=== PATIENT | female | born 1985 | race Hispanic/Latino ===

== ENCOUNTER 2017-03-13 13:12 | Inpatient (IN) | payer OTHER ==
[2017-03-13 13:23] VITALS: BMI 27.5
--- NOTE | 2017-03-13 13:56 | OBHP ---
Datetime: 03/13/2017 13:30 IP Adm Impression: Term, intrauterine ; No Active Labor IP Admit Plan: Observation/Evaluation Admit Comment, IP Provider: 31yo IUp at [address] Flowers for elevated BP. No messer; no visual dist. No SROM; no VB; +FM Prenatl chart rev'd PMH: denies PSH: denies NKA PSoH: denies smoking ETOH drugs POBGYNH: no STD; G1 EDC March A: IUP at 37w elevated BP PLAN: NST check blood work check UA spoke to Dr Flowers earlier pt understnds and her questions answered Pelvic Type - PN: Adequate Extremities - PN: Normal Abdomen - PN: Normal Back - PN: Normal Breast - PN: Not Done Lungs - PN: Normal Heart - PN: Normal Thyroid - PN: Normal Neurologic - PN: Normal HEENT - PN: Normal General - PN: Normal Presentation-Admit: Vertex IP Fetus A Comments: Sonogram ceph FHR - Baseline A Provider: 125 Comments, ACOG Physical Exam: ROS: Geneeral no weakness; no fatigue HEENT: No MESSER; no visual dist Resp: No SOB; no Cough CV: NO CP; no palpitations GI: No N/V/D : No F/U/D MS: NO joint pain Pool Provider: Negative IP Hx Assessment: The History has been Reviewed and is Current Vital Signs Provider: Reviewed IP Chief Complaint: Signs/Symptoms Gestational HTN NICHD Variability Prov Fetus A: Moderate 6-25bpm NICHD Accel Fetus A IP Provider: 15X15 FHR Category Provider Fetus A: Category I NICHD Decel Fetus A IP Provider: None Genitourinary Exam: Normal DTRs - PN: Normal
[2017-03-13 14:14] LABS: RBC URINE 9 /hpf (0-3); URINE BACTERIA OCC (<OCC); URINE BILIRUBIN NEGATIVE (NEGATIVE); URINE BLOOD MODERATE (NEGATIVE); URINE COLOR STRAW (YELLOW); URINE GLUCOSE (UA) NEG (Normal); URINE KETONE NEGATIVE (NEGATIVE); URINE LEUKOCYTE ESTERASE NEG Leu/uL (Negative); URINE PROTEIN NEGATIVE (NEGATIVE); URINE UROBILINOGEN 0.2-1.0 mg/dL (0.2-1.0); WBC URINE 1 /hpf (0-5)
[2017-03-13 14:16] LABS: HEMATOCRIT 35.9 % (34.0-47.0); MEAN CELL VOLUME 87.6 fl (81.0-99.0); MEAN CORPUSCULAR HGB CONC 34.2 g/dL (33.0-37.0); RED CELL DISTRIBUTION WIDTH 13.4 % (11.5-14.5); WHITE BLOOD COUNT 8.3 K/uL (4.8-10.8)
[2017-03-13 14:24] LABS: ALB/GLOB RATIO 1.3 (1.0-2.1); ALKALINE PHOSPHATASE 135 U/L (38-126); ALT/SGPT 26 U/L (9-52); AST/SGOT 24 U/L (14-36); BILIRUBIN,TOTAL 0.5 mg/dl (0.2-1.3); BLOOD UREA NITROGEN 10 mg/dl (7-17); CARBON DIOXIDE 20 mmol/L (22-30); CHLORIDE 105 mmol/L (98-107); GFR AFRICAN-AMERICAN > 60; GLUCOSE,RANDOM 93 mg/dL (65-105); POTASSIUM 4.1 MMOL/L (3.6-5.0); SODIUM 137 mmol/l (132-148); TOTAL PROTEIN 6.9 G/DL (6.3-8.2); URIC ACID 4.5 mg/Dl (2.2-7.5)
[2017-03-13 14:33] LABS: PARTIAL THROMBOPLASTIN TIME 27.1 SECONDS (23.3-32.5)
--- NOTE | 2017-03-13 14:37 | OBHP ---
Datetime: 03/13/2017 13:30 Admit Comment, IP Provider: 31yo IUp at [address] Flowers for elevated BP. No jain; no visual dist. No SROM; no VB; +FM Prenatl chart rev'd PMH: denies PSH: denies NKA PSoH: denies smoking ETOH drugs POBGYNH: Hx HPV abnormal PAP; G1 EDC Candi A: IUP at 37w elevated BP PLAN: NST check blood work check UA spoke to Dr Flowers earlier pt understnds and her questions answered
[2017-03-13 14:49] VITALS: BP 142/83; PULSE 80; RESP 20; TEMP 98.6; O2SAT 100
--- NOTE | 2017-03-13 16:13 | OBPN ---
Datetime: 03/13/2017 16:09 IP Progress Impression: Reassuring heart rate IP Informed Consent Obtain: Vaginal Delivery; Risks, Benefits and Alternatives Discussed IP Progress Plan: Induction; Cervical Ripening IP Progress Note Comment: Labs rev'd; spoke to Dr Flowers ... pt finished eating...Cervidil placed Dilatation, Provider: 1 Effacement, Provider: long [facility], Provider: high Datetime: 03/13/2017 13:30 Pool Provider: Negative FHR - Baseline A Provider: 125 IP Fetus A Comments: Sonogram ceph Presentation-Admit: Vertex Vital Signs Provider: Reviewed NICHD Accel Fetus A IP Provider: 15X15 FHR Category Provider Fetus A: Category I NICHD Variability Prov Fetus A: Moderate 6-25bpm NICHD Decel Fetus A IP Provider: None
[2017-03-14] MEDS: Lactated Ringer's 1,000 ML IV SCH ×2 (05:05→13:15)
[2017-03-14] MEDS ORDERED: Oxytocin 30 units/LR 500ML 30 U/500 ML BAG IV SCH (05:30)
[2017-03-14] MEDS ORDERED: Nalbuphine 20 mg/ml Inj (1 ml) IVP PRN (06:51)
[2017-03-14] MEDS ORDERED: Lactated Ringer's 1,000 ML IV SCH (14:15)
[2017-03-14] MEDS ORDERED: Fentanyl/Bupivacaine HCl 250 ML EPI ONE (16:35)
[2017-03-14] MEDS ORDERED: Bupivacaine HCl 0.25% PF (10 ml) Inj ONE (16:35)
[2017-03-14] MEDS ORDERED: Lidocaine 1% Inj (20ml) ONE (23:21)
--- NOTE | 2017-03-14 23:58 | OBADHP ---
Datetime: 03/13/2017 16:09 Dilatation, Provider: 1 Effacement, Provider: long [facility], Provider: high Datetime: 03/13/2017 13:30 Admit Comment, IP Provider: 31yo IUp at [address] Flowers for elevated BP. No messer; no visual dist. No SROM; no VB; +FM Prenatl chart rev'd PMH: denies PSH: denies NKA PSoH: denies smoking ETOH drugs POBGYNH: Hx HPV abnormal PAP; G1 EDC Candi A: IUP at 37w with atypical preeclampsia elevated BP PLAN: NST check blood work check UA spoke to Dr Flowers earlier pt understnds and her questions answered Pelvic Type - PN: Adequate Extremities - PN: Normal Abdomen - PN: Normal Back - PN: Normal Breast - PN: Not Done Lungs - PN: Normal Heart - PN: Normal Thyroid - PN: Normal Neurologic - PN: Normal HEENT - PN: Normal General - PN: Normal Presentation-Admit: Vertex IP Fetus A Comments: Sonogram ceph FHR - Baseline A Provider: 125 Comments, ACOG Physical Exam: ROS: Geneeral no weakness; no fatigue HEENT: No MESSER; no visual dist Resp: No SOB; no Cough CV: NO CP; no palpitations GI: No N/V/D : No F/U/D MS: NO joint pain Pool Provider: Negative IP Hx Assessment: The History has been Reviewed and is Current Vital Signs Provider: Reviewed IP Chief Complaint: Signs/Symptoms Gestational HTN NICHD Variability Prov Fetus A: Moderate 6-25bpm NICHD Accel Fetus A IP Provider: 15X15 FHR Category Provider Fetus A: Category I NICHD Decel Fetus A IP Provider: None Genitourinary Exam: Normal DTRs - PN: Normal IP Adm Impression: Term, intrauterine ; No Active Labor IP Admit Plan: Observation/Evaluation
--- NOTE | 2017-03-15 00:05 | OBPN ---
Datetime: 03/15/2017 00:00 IP Progress Impression: Normal progression of labor IP Informed Consent Obtain: Vaginal Delivery IP Progress Plan: Continue present management Membranes, Provider: Ruptured Amniotic Fluid Color, Provider: Clear Contraction Comments Provider: q 2 min FHR - Baseline A Provider: 145 Gestation - Est Wks by US: 37.4 Presentation-Admit: Vertex IP Progress Note Comment: pt seen and examined c/o of pressure, reports contraction q 2 min pain con trolled, +lof, denies VB, +FM denies headaches, blurry vision, RUQ/epigastric pain VSS PE Gen: NAD, AAO x 3 RESP CTAB?L CVS: RRR, +S1/S2 ABD: soft, NT, no RUQ/epgiastric pain VE: 10/100/+1 EXT no calf tendenress MEDS s/p Cervdil on Pitoicin 10 mu/min A/P @ 37+ wks IOL for preeclampsia , fully dilated -start pushing -anticipate Vital Signs Provider: Reviewed; Within Normal Limits FHR Category Provider Fetus A: Category I NICHD Variability Prov Fetus A: Moderate 6-25bpm Dilatation, Provider: 10 Effacement, Provider: 100 Station, Provider: 1 NICHD Decel Fetus A IP Provider: None
[2017-03-15] MEDS ORDERED: Benzocaine/Menthol SPRAY TOP PRN ×2 (00:07→03:32)
[2017-03-15] MEDS ORDERED: Oxycodone/Acetaminophen 5/325 mg Tab PO PRN ×4 (00:07→03:32)
--- NOTE | 2017-03-15 00:48 | OBDS ---
MATERNAL INFORMATION Provider Comments: pt was fully dilated and pushing, atramatic, spontaneous deliveyr of head in JOSHUA position with nuchal cord x 1 tight, loosened, atrumatic, spontaeous deliveyr of anterior followe dby posteiro shouler with body cord, both oral and and nasal passages of baby bulb suctioned. umbical co rd clamped and cut, baby handed ot mother on abdomen with rn assistance. spontanoeus deliveyr of int act placent with membranes., fundus firm. good hemostasis, second degree perineal laceration reapire d with 2-[address] Good hemostasis, no complications. live male infant agpars 9,9 weight of 6lb 10 ounces ebl 300 ml no complications LABOR SUMMARY EDC: 04/01/2017 00:00 No. Babies in Womb: 1 LABOR INFORMATION Cervical Ripening Agents: Cervidil (Annotations: cervidil inserted by Dr. Antonio) Group B Beta Strep: Negative MEMBRANES Membranes Rupture Method: Spontaneous Amniotic Fluid Color: Clear Amniotic Fluid Amount: Moderate VAGINAL DELIVERY Episiotomy: None Laceration Extension: Second Degree Laceration Type: Perineal Laceration Repair Note: second degree perineal laceration noted adn repaired with 2-0 chormic
[2017-03-15] MEDS ORDERED: Oxytocin 30 units/LR 500ML 30 U/500 ML BAG IV ONE (00:52)
[2017-03-15] MEDS ORDERED: Multivitamin With Minerals Tab PO SCH (09:00)
[2017-03-15 14:16] LABS: ALB/GLOB RATIO 1.2 (1.0-2.1); ALKALINE PHOSPHATASE 103 U/L (38-126); ALT/SGPT 23 U/L (9-52); AST/SGOT 29 U/L (14-36); BILIRUBIN,TOTAL 0.7 mg/dl (0.2-1.3); BLOOD UREA NITROGEN 7 mg/dl (7-17); CARBON DIOXIDE 23 mmol/L (22-30); CHLORIDE 104 mmol/L (98-107); GFR AFRICAN-AMERICAN > 60; GLUCOSE,RANDOM 89 mg/dL (65-105); SODIUM 135 mmol/l (132-148); TOTAL PROTEIN 5.7 G/DL (6.3-8.2); URIC ACID 3.5 mg/Dl (2.2-7.5)
[2017-03-15 14:38] LABS: BASO % 0.3 % (0.0-2.0); EOS # 0.1 K/uL (0.0-0.7); EOS % 0.4 % (0.0-4.0); HEMATOCRIT 34.6 % (34.0-47.0); LYMPH # 1.4 K/uL (1.0-4.3); LYMPH % 10.7 % (20.0-40.0); MEAN CELL VOLUME 87.6 fl (81.0-99.0); MEAN CORPUSCULAR HEMOGLOBIN 30.3 pg (27.0-31.0); MEAN CORPUSCULAR HGB CONC 34.6 g/dL (33.0-37.0); MEAN PLATELET VOLUME 9.2 fl (7.2-11.7); MONO # 0.9 K/uL (0.0-0.8); MONO % 6.9 % (0.0-10.0); NEUT # 10.9 K/uL (1.8-7.0); NEUT % 81.7 % (50.0-75.0); RED CELL DISTRIBUTION WIDTH 12.9 % (11.5-14.5); WHITE BLOOD COUNT 13.3 K/uL (4.8-10.8)
[2017-03-15 14:47] LABS: PARTIAL THROMBOPLASTIN TIME 30.1 SECONDS (23.3-32.5)
[2017-03-15] MEDS: Multivitamin With Minerals Tab PO SCH (16:59)
[2017-03-16] MEDS: Multivitamin With Minerals Tab PO SCH (10:12)
--- NOTE | 2017-03-16 12:07 | OBPPN ---
Datetime: 03/16/2017 06:21 PP Pain Prov: Within normal limits PP Nausea Prov: Denies PP Flatus Prov: Yes PP BM Prov: Yes PP Heart Prov: Normal PP Lungs Prov: Normal PP Abdomen/Uterus Prov: Normal PP Lochia Prov: Normal PP Extremities Prov: Normal PP C/S Incision Prov: Not Applicable PP Progress Prov: Normal PP Comments Phys Exam Prov: Fundus firm below umbilicus PP Impression Prov: Normal progression PP Plan Prov: Continue present management PP Progress Note Prov: 31 yo , seen and examined bedside. Patient denies any overnight events. She reports mild/pelvic pain controlled w/ pain meds. OOB/Ambulating w/o dizziness. Breast/bottle f eeding w/o difficulty. Tolerating PO diet well. Lochia is less than menses in volume. Voiding free ly . Pt has passed gas has had a bowl movement. Denies fevers, chills, n/v/d, CP/SOB, lightheadednes s and calf pain. Assessment: 31 yo , s/p on 03/15/17 @ 00:21 tolerating pain w/ medication, tolerating o ral intake, adequate urine output, doing well on PPD#1 Plan: - Mild/mod pain PRN: Ibuprofen 600mg PO Q6 PRN pain -Encourage breast feeding and ambulation Wanda Hawkins M.D PGY-1 agree with above IP PP Procedures: None Vital Signs Provider PP: Reviewed; Within Normal Limits
--- NOTE | 2017-03-16 12:07 | OBDCSUM ---
Datetime: 03/16/2017 12:05 Discharged to, Provider: Home Follow up at, Provider: Dr Flowers Disch Instr Activity: Normal activity Disch Instr Diet: Regular Discharge Instructions, Provider: Routine instructions given Discharge Diagnosis, Provider: Term Delivered Discharge Time: 03/17/2017 12:00 Follow up in weeks, Provider: 6 weeks Disch Referrals: None Contraception discussed, Prov: Yes Disch Activity Restrictions: No sexual activity; Nothing in vagina - [place], tampons, douche Discharge Comment, Provider: d/c in am Contraception after Delivery: Not Planning to Use
[2017-03-17] MEDS: Multivitamin With Minerals Tab PO SCH (10:00)
== END 2017-03-17 12:20 | disposition home or self-care (01) | DRG 775 ==
LOC: H.EROB2 13:12 → H.L&D 13:56 → H.OB/GYN 03-15 02:30
PROVIDERS: ADMIT Obstetrics & Gynecology; ATTEND Obstetrics & Gynecology
PROC: 4A1HXCZ Monitoring of Products of Conception, Cardiac Rate, External Approach (ICD-10-PCS; 2017-03-13)
PROC: 0KQM0ZZ Repair Perineum Muscle, Open Approach (ICD-10-PCS; principal; 2017-03-15)
PROC: 10E0XZZ Delivery of Products of Conception, External Approach (ICD-10-PCS; 2017-03-15)
DX: O70.1 Second degree perineal laceration during delivery (principal); Z37.0 Single live birth; O69.81X0 Labor and delivery complicated by cord around neck, without compression, not applicable or unspecified; Z3A.37 37 weeks gestation of pregnancy